=== PATIENT | male | born 1985 | race Caucasian/White ===

== ENCOUNTER 2025-03-10 21:02 | Emergency (ER) | payer OTHER ==
[~2025-03-10] VITALS: Ht 170.2 cm; Wt 111.7 kg
[2025-03-11] MEDS ORDERED: MEDR4PAK PO (01:14)
[2025-03-11] MEDS ORDERED: KETO-204 PO (01:14)
[2025-03-11 01:20] VITALS: BP 134/85; TEMP 98.4; O2SAT 97
== END 2025-03-11 01:28 | disposition home or self-care (01) ==
LOC: M ED 21:02
DX: M25.552 Pain in left hip (principal); Z79.2 Long term (current) use of antibiotics; Z79.899 Other long term (current) drug therapy

== ENCOUNTER → 2025-04-08 | Outpatient (CLI) | payer OTHER ==
[~2025-04-08] MED LIST: KETO-204 PO; MEDR4PAK PO
== END ==
LOC: M SOG 13:16
PROVIDERS: ATTEND Orthopaedic Surgery
DX: M25.561 Pain in right knee (principal)

== ENCOUNTER 2025-06-05 19:36 | Emergency (ER) | payer OTHER ==
[~2025-06-05] VITALS: Ht 177.8 cm; Wt 114.2 kg
[2025-06-05] MEDS: ACETAMINOPHEN 325 MG TAB PO ONE (20:00)
[2025-06-05 20:59] LABS: BASO # 0.1 10^3/uL (0.0-0.2); BASO % 1.0 % (0.0-1.0); EOS # 0.2 10^3/uL (0.0-0.5); EOS % 1.9 % (0.0-3.0); LYMPH # 2.2 10^3/uL (1.5-5.0); LYMPH % 20.8 % (24.0-44.0); MONO # 0.6 10^3/uL (0.0-0.8); MONO % 6.0 % (2.0-8.0); NEUTROPHILS # 7.4 10^3/uL (1.5-8.5); NEUTROPHILS % 70.0 % (36.0-66.0); PLATELET COUNT, AUTOMATED 311 10^3/uL (150-450)
[2025-06-05 21:26] LABS: CALCIUM LEVEL 9.0 MG/DL (8.5-10.1); CARBON DIOXIDE LEVEL 30 MMOL/L (20-31); CHLORIDE LEVEL 104 MMOL/L (98-107); CREATININE FOR GFR 0.87 MG/DL (0.70-1.30); GLOMERULAR FILTRATION RATE > 90.0 (>60); POTASSIUM SERUM 4.6 MMOL/L (3.5-5.1); SODIUM LEVEL 141 MMOL/L (136-145)
[2025-06-05] MEDS ORDERED: CEFD300C PO (21:30)
[2025-06-05] MEDS ORDERED: ZITHTAB PO (21:30)
[2025-06-05] MEDS: AZITHROMYCIN 250 MG TABLET PO ONE (21:37)
[2025-06-05] MEDS: CEFDINIR 300 MG CAP PO ONE (21:37)
[2025-06-05 21:51] VITALS: BP 139/78; TEMP 99.9; O2SAT 95
== END 2025-06-05 21:57 | disposition home or self-care (01) ==
LOC: M ED 19:36
DX: J18.9 Pneumonia, unspecified organism (principal); F17.210 Nicotine dependence, cigarettes, uncomplicated; Z79.2 Long term (current) use of antibiotics